=== PATIENT | male | born 1955 | race Caucasian/White ===

== ENCOUNTER 2019-10-21 10:35 | Inpatient (IN) | payer OTHER ==
[~2019-10-21] VITALS: Ht 160 cm; Wt 68.7 kg
[2019-10-21 11:49] LABS: BASOPHIL % 0.2 % (0-2); PLATELET COUNT 213 x10^3mcL (130-400); RED CELL DISTRIBUTION WIDTH 13.4 % (11.5-14.5)
[2019-10-21 11:54] LABS: CALCIUM 9.1 mg/dL (8.5-10.1); CARBON DIOXIDE 27.4 mmol/L (21-32); CHLORIDE SERUM 98 mmol/L (98-107); GFR1 > 60 mL/min; GLUCOSE SERUM 135 mg/dL (74-106); POTASSIUM SERUM 3.5 mmol/L (3.5-5.1); SODIUM SERUM 135 mmol/L (136-145)
[2019-10-21 12:01] LABS: ALBUMIN 3.6 g/dL (3.4-5.0); ALKALINE PHOSPHATASE 65 U/L (46-116); ALT/SGPT 34 U/L (16-63); AST/SGOT 18 U/L (15-37); BILIRUBIN TOTAL 0.81 mg/dL (0.20-1.00); CHOLESTEROL 191 mg/dL (<200); TOTAL PROTEIN, SERUM 7.9 g/dL (6.4-8.2)
[2019-10-21 12:02] LABS: HDL CHOLESTEROL 96 mg/dL (40-60)
[2019-10-21 13:15] LABS: microscopic required? NO
[2019-10-21 13:50] LABS: urine erythrocyte NEGATIVE (NEGATIVE)
[2019-10-21] MEDS ORDERED: LISINOPRIL2.5 MG (17:32)
[2019-10-21 19:20] VITALS: BP 127/82
[2019-10-21 19:23] VITALS: Ht 160 cm; Wt 68.7 kg
[2019-10-21 19:32] VITALS: BP 126/86
[2019-10-21] MEDS ORDERED: HCTZ/LISINOPRIL1 TA2 PO (19:57)
[2019-10-21] MEDS ORDERED: FLO4 PO (19:59)
[2019-10-21] MEDS ORDERED: GOOD SENSE ASPI81 M3 PO (20:00)
[2019-10-21] MEDS ORDERED: COREG12.5 MG PO (20:01)
[2019-10-21] MEDS ORDERED: APAP500 MG PO (20:04)
[2019-10-22 04:50] VITALS: BP 103/66
[2019-10-22 06:21] LABS: BASOPHIL % 0.3 % (0-2); PLATELET COUNT 216 x10^3mcL (130-400); RED CELL DISTRIBUTION WIDTH 13.4 % (11.5-14.5)
[2019-10-22 06:56] LABS: AMPHETAMINE QUAL UR NONE DETECTED (See below)
[2019-10-22 07:00] LABS: CALCIUM 8.8 mg/dL (8.5-10.1); CHLORIDE SERUM 101 mmol/L (98-107); CREATININE SERUM 0.9 mg/dL (0.7-1.3); GFR1 > 60 mL/min; GLUCOSE SERUM 87 mg/dL (74-106); MAGNESIUM 1.9 mg/dL (1.8-2.4); POTASSIUM SERUM 3.4 mmol/L (3.5-5.1); SODIUM SERUM 138 mmol/L (136-145)
[2019-10-22 08:56] VITALS: BP 117/74
[2019-10-22 12:55] VITALS: BP 131/82
[2019-10-22 16:15] VITALS: BP 119/77
[2019-10-22 21:06] VITALS: BP 151/95
[2019-10-23 05:39] VITALS: BP 102/69
[2019-10-23 06:52] LABS: BASOPHIL % 0.3 % (0-2); PLATELET COUNT 211 x10^3mcL (130-400); RED CELL DISTRIBUTION WIDTH 13.6 % (11.5-14.5)
[2019-10-23 07:06] LABS: CALCIUM 8.3 mg/dL (8.5-10.1); CARBON DIOXIDE 27.7 mmol/L (21-32); CHLORIDE SERUM 105 mmol/L (98-107); CREATININE SERUM 0.9 mg/dL (0.7-1.3); GFR1 > 60 mL/min; GLUCOSE SERUM 93 mg/dL (74-106); MAGNESIUM 1.9 mg/dL (1.8-2.4); PHOSPHOROUS 3.1 mg/dL (2.5-4.9); SODIUM SERUM 140 mmol/L (136-145)
[2019-10-23 08:47] VITALS: BP 130/82
[2019-10-23 11:21] VITALS: BP 138/70
[2019-10-23 12:12] VITALS: BP 114/80
[2019-10-23] MEDS ORDERED: PROTONIX40 MG PO (12:23)
== END 2019-10-23 13:40 | disposition home or self-care (01) | DRG 190 ==
LOC: ED 10:35 → DU 17:15
PROVIDERS: Emergency Medicine; ADMIT Internal Medicine
DX: I21.A1 Myocardial infarction type 2 (principal); E86.0 Dehydration; E78.5 Hyperlipidemia, unspecified; E87.6 Hypokalemia; I10 Essential (primary) hypertension; F10.239 Alcohol dependence with withdrawal, unspecified; Y90.0 Blood alcohol level of less than 20 mg/100 ml; G89.29 Other chronic pain; M54.9 Dorsalgia, unspecified; K57.30 Diverticulosis of large intestine without perforation or abscess without bleeding; N40.0 Benign prostatic hyperplasia without lower urinary tract symptoms; Z79.899 Other long term (current) drug therapy
CPT/HCPCS: 82962; 83880; 87804; C9113; G0378; G0480; J1644; J2405; J3010; J3490; J7030; J8597; Q0092; Q9967

== ENCOUNTER 2020-10-25 07:11 | Emergency (ER) | payer OTHER ==
[~2020-10-25] VITALS: Ht 160 cm; Wt 68.0 kg
[~2020-10-25 07:11] MED LIST: APAP500 MG PO; COREG12.5 MG PO; FLO4 PO; GOOD SENSE ASPI81 M3 PO; HCTZ/LISINOPRIL1 TA2 PO; LISINOPRIL2.5 MG; PROTONIX40 MG PO
[2020-10-25 07:30] VITALS: Ht 160 cm; Wt 68.0 kg
[2020-10-25 09:59] LABS: BASOPHIL % 0.7 % (0.2-1.5); PLATELET COUNT 245 x10^3mcL (152-348); RED CELL DISTRIBUTION WIDTH 13.7 % (12.1-16.2)
[2020-10-25 12:15] LABS: CALCIUM 8.8 mg/dL (8.5-10.1); CARBON DIOXIDE 24.9 mmol/L (21-32); CHLORIDE SERUM 99 mmol/L (98-107); CREATININE SERUM 0.9 mg/dL (0.7-1.3); GFR1 > 60 mL/min; GLUCOSE SERUM 121 mg/dL (74-106); SODIUM SERUM 136 mmol/L (136-145)
[2020-10-25 12:19] LABS: ALBUMIN 3.7 g/dL (3.4-5.0); ALKALINE PHOSPHATASE 53 U/L (46-116); ALT/SGPT 26 U/L (16-63); AST/SGOT 14 U/L (15-37); BILIRUBIN TOTAL 0.51 mg/dL (0.20-1.00); CHOLESTEROL 137 mg/dL (<200); TOTAL PROTEIN, SERUM 7.5 g/dL (6.4-8.2)
[2020-10-25 15:02] VITALS: BP 119/81
== END 2020-10-25 15:02 | disposition home or self-care (01) ==
LOC: ED 07:11
PROVIDERS: Specialist
DX: F41.9 Anxiety disorder, unspecified (principal); R25.1 Tremor, unspecified
CPT/HCPCS: 82962; G0480; J7030